=== PATIENT | female | born 1950 | race Caucasian/White ===

== ENCOUNTER 2016-08-06 21:35 | Emergency (ER) | payer MEDICARE, BC ==
[2016-08-06 22:14] VITALS: BP 152/72
[2016-08-06] MEDS ORDERED: Ibuprofen TAB* 400 MG PO ONE (23:58)
--- NOTE | 2016-08-07 00:06 | ED ---
Lower Extremity - History of Current Complaint Chief Complaint: EDExtremityLower Stated Complaint: RT KNEE INJURY Time Seen by Provider: 08/06/16 23:09 Pain Intensity: 3 - Allergies/Home Medications Allergies/Adverse Reactions: Allergies Allergy/AdvReac Type Severity Reaction Status Date / Time Levofloxacin [From Levaquin] Allergy Rash Verified 02/22/15 13:32 Sulfa Antibiotics Allergy Rash Verified 02/22/15 13:32 Sulfamethoxazole Allergy Rash Verified 02/22/15 13:32 w/Trimethoprim [From Bactrim] PMH/Surg Hx/FS Hx/Imm Hx Endocrine/Hematology History: Reports: Hx Diabetes, Hx Thyroid Disease Cardiovascular History: Reports: Hx Hypertension Respiratory History: Reports: Hx Asthma - Surgical History Surgery Procedure, Year, and Place: c-sections. sinus surgery - last one was ~ 5 years ago. Carpal Tunnel surgery bilaterally. Tonsilectomy as a child. Kidney stone removal Infectious Disease History: No Infectious Disease History: Denies: History Other Infectious Disease, Traveled Outside the [place] in Last 30 Days - Family History Known Family History: Positive: None - Social History Alcohol Use: None Substance Use Type: Reports: None Smoking Status (MU): Never Smoked Tobacco Physical Exam Vital Signs On Initial Exam: Initial Vitals Temp Pulse Resp BP Pulse Ox 97.4 F 64 20 152/103 96 08/06/16 21:36 08/06/16 21:36 08/06/16 21:36 08/06/16 21:36 08/06/16 21:36 - Jarrod Coma Scale Coma Scale Total: 15 Diagnostics - Vital Signs Vital Signs Temp Pulse Resp BP Pulse Ox 08/06/16 22:10 98.4 F 72 16 152/72 95 08/06/16 22:05 70 95 08/06/16 22:03 152/72 08/06/16 21:36 97.4 F 64 20 152/103 96 - Laboratory Lab Statement: Any lab studies that have been ordered have been reviewed, and results considered in the medical decision making process. - Radiology right knee Xray Interpretation: No Acute Changes Radiology Interpretation Completed By: ED Physician - Dr Brooks Lower Extremity Course/Dx - Diagnoses Differential Diagnosis/HQI/PQRI: Positive: Dislocation, Fracture (Closed), Sprain, Strain Provider Diagnoses: Knee pain, right, Knee injury Discharge - Discharge Plan Condition: Stable Disposition: HOME Patient Education Materials: Knee Immobilizer (ED), Knee Pain (ED) Referrals: No Primary Care Phys,NOPCP [Primary Care Provider] - [facility] [Outside] Additional Instructions: Take NSAIDs such as Aleve or Ibuprofen to help with pain and inflammation. Use walker and knee immobilizer to help with healing and pain. Elevate and ice. Make an appointment with your primary care provider or orthopedics for further evaluation and imaging if symptoms persist. If worsen or new symptoms develop please seek medical attention promptly.
--- NOTE | 2016-08-07 06:57 | RAD ---
INDICATION: Right knee injury. TECHNIQUE: 4 views of the right knee were obtained. FINDINGS: The bones are in normal alignment. No joint effusion or fracture is seen. Joint spaces appear maintained. IMPRESSION: NO EVIDENCE FOR FRACTURE.
== END 2016-08-07 00:45 | disposition home or self-care (01) ==
LOC: ED 21:35
DX: S89.91XA Unspecified injury of right lower leg, initial encounter (principal); M25.561 Pain in right knee; E11.9 Type 2 diabetes mellitus without complications; I10 Essential (primary) hypertension; X58.XXXA Exposure to other specified factors, initial encounter; Y92.9 Unspecified place or not applicable; E07.9 Disorder of thyroid, unspecified; Z88.2 Allergy status to sulfonamides
CPT/HCPCS: 99283; A9270-GY